=== PATIENT | male | born 1975 | race Caucasian/White ===

== ENCOUNTER 2018-05-16 19:19 | Observation (INO) ==
[2018-05-16] MEDS ORDERED: Piperacillin/Tazobactam 3.375 GM in 0.9 % Sodium Chloride Mini Bag 100 ML IVPB ONE (20:02)
--- NOTE | 2018-05-16 20:03 | Emergency Department Note ---
Disposition Referrals: Clarke Flores DO [Primary Care Provider] - Lower Extremity Injury HPI - General Chief Complaint: ED Skin/Abscess/Foreign Body Stated Complaint: lymphedema,cellulitis Source: patient Limitations: physical limitation - Related Data Home Medications Medication Instructions Recorded Confirmed Cholecalciferol (D-3) [Vitamin D] 1,000 unit PO DAILY 10/12/16 02/13/18 Furosemide [Lasix] 40 mg PO DAILY 10/12/16 02/13/18 Gabapentin [Neurontin] 300 mg PO TID 10/12/16 02/13/18 HydrOXYzine 50 mg PO QID PRN 10/12/16 02/13/18 Ibuprofen [Motrin] 800 mg PO TID 10/12/16 02/13/18 Paroxetine HCl [Paxil] 20 mg PO DAILY 10/12/16 02/13/18 Potassium Chloride [K-Tab ER] 10 meq PO DAILY 10/12/16 02/13/18 Previous Rx's Medication Instructions Recorded Albuterol Sulfate [Albuterol 2 puff IH Q6HR PRN #1 hfa.aer.ad 10/12/16 Inhaler] Clotrimazole 1% CRM [Lotrimin 1%] 1 appl TP BID #1 tube 02/22/18 Doxycycline 100 mg PO Q12H 4 Days #8 capsule 02/22/18 levoFLOXacin [Levaquin] 750 mg PO DAILY 4 Days #4 tablet 02/22/18 Allergies Allergy/AdvReac Type Severity Reaction Status Date / Time No Known Allergies Allergy Verified 02/13/18 09:56 Past Medical History - Past Medical History Medical history: Reports: diabetes, hypertension, other Psychiatric history: Reports: no psych history - Social History Smoking Status: Current every day smoker Smokeless Tobacco Status: No Alcohol use: Reports: occasionally Drug use: Reports: none Physical Exam - General Limitations: physical limitation General appearance: alert Course Vital Signs Temperature 98.3 F 05/16/18 19:20 Pulse Rate 80 05/16/18 19:20 Respiratory Rate 16 05/16/18 19:20 Blood Pressure 146/79 05/16/18 19:20 O2 Sat by Pulse Oximetry 95 05/16/18 19:20 Temperature 98.3 F 05/16/18 19:20 Pulse Rate 80 05/16/18 19:20 Respiratory Rate 16 05/16/18 19:20 Blood Pressure 146/79 05/16/18 19:20 O2 Sat by Pulse Oximetry 95 05/16/18 19:20 Oxygen Delivery Oxygen Delivery Room Air
[2018-05-16 20:31] LABS: Hematocrit 38.4 % (37.5-50.1); Hemoglobin 12.2 g/dL (12.9-16.9); Mean Corpuscular HGB Conc 31.8 g/dL (31.6-35.5); Mean Corpuscular Hemoglobin 28.5 pg (28.0-33.3); Mean Corpuscular Volume 89.7 fL (83.0-100.0); Mean Platelet Volume 11.3 fL (9.4-12.4); Platelet Count 146 K/mcL (140-400); Red Blood Count 4.28 M/mcL (4.19-5.50); Red Cell Distribution Width 15.2 % (11.5-14.5)
[2018-05-16 20:40] LABS: INR 1.1; Prothrombin Time 12.3 Seconds (9.4-12.1)
[2018-05-16 20:42] LABS: Activated Partial Thrombo Time 30.7 Seconds (26.0-36.0)
[2018-05-16 20:51] LABS: Alanine Aminotransferase 10 Units/L (7-52); Albumin 3.2 g/dL (3.5-5.7); Alkaline Phosphatase 63 Units/L (34-104); Aspartate Amino Transferase 11 Units/L (13-39); BUN/Creatinine Ratio 20 (6-26); Bilirubin,Total 0.4 mg/dL (0.3-1.0); Blood Urea Nitrogen 17 mg/dL (6-20); Calcium 8.4 mg/dL (8.6-10.3); Carbon Dioxide 27 mEq/L (23-29); Chloride 105 mEq/L (98-107); Globulin 3.3 g/dL (2.4-3.5); Glucose 138 mg/dL (70-105); Osmolality,Calculated 288 (280-300); Potassium 3.3 mEq/L (3.5-5.1); Sodium 137 mEq/L (136-145); Total Protein 6.5 g/dL (6.4-8.9); eGFR For Non-African Americans > 60 (> 60)
[2018-05-16 20:55] LABS: Dohle Bodies Present (Not Present); Large Platelets Present (Not Present); Platelet Estimate Normal (Normal); Toxic Granulation Present (Not Present); Toxic Vacuolation Present (Not Present)
[2018-05-16 20:57] LABS: Anisocytosis 1+ (Not Present)
[2018-05-16] MEDS ORDERED: hydrOXYzine pamoate 25 MG CAPSULE PO PRN (22:59)
[2018-05-16] MEDS ORDERED: Naloxone 0.4 MG/ML INJ IVP PRN (22:59)
[2018-05-16] MEDS: 0.9 % Sodium Chloride 1,000 ML IVC SCH (23:46)
[2018-05-17] MEDS ORDERED: Ibuprofen 800 MG TABLET PO PRN (03:54)
[2018-05-17 05:30] LABS: Basophils % 0.3 %; Eosinophils # 0.1 K/mcL (0.0-0.6); Eosinophils % 1.2 %; Hematocrit 35.7 % (37.5-50.1); Hemoglobin 11.5 g/dL (12.9-16.9); Immature Granulocytes % 0.6 % (0-4); Lymphocytes # 1.1 K/mcL (0.6-4.6); Lymphocytes % 16.8 %; Mean Corpuscular HGB Conc 32.2 g/dL (31.6-35.5); Mean Corpuscular Hemoglobin 28.7 pg (28.0-33.3); Mean Platelet Volume 11.9 fL (9.4-12.4); Monocytes # 0.7 K/mcL (0.0-1.3); Monocytes % 10.7 %; Neutrophils # 4.7 K/mcL (1.6-8.9); Platelet Count 128 K/mcL (140-400); Red Blood Count 4.01 M/mcL (4.19-5.50); Red Cell Distribution Width 15.2 % (11.5-14.5); Segmented Neutrophils % 70.4 %
[2018-05-17 05:33] LABS: INR 1.1
[2018-05-17 05:35] LABS: Activated Partial Thrombo Time 30.7 Seconds (26.0-36.0)
[2018-05-17 05:48] LABS: BUN/Creatinine Ratio 20 (6-26); Blood Urea Nitrogen 16 mg/dL (6-20); Calcium 8.2 mg/dL (8.6-10.3); Carbon Dioxide 25 mEq/L (23-29); Chloride 106 mEq/L (98-107); Glucose 102 mg/dL (70-105); Osmolality,Calculated 287 (280-300); Potassium 3.5 mEq/L (3.5-5.1); Sodium 138 mEq/L (136-145); eGFR For Non-African Americans > 60 (> 60)
[2018-05-17] MEDS: 0.9 % Sodium Chloride 1,000 ML IVC SCH (07:49)
[2018-05-17] MEDS: Cholecalciferol (D-3) 1,000 UNIT TABLET PO SCH (07:50)
[2018-05-17] MEDS: Furosemide 40 MG TABLET PO SCH (07:50)
[2018-05-17] MEDS: Piperacillin/Tazobactam 3.375 GM in 0.9 % Sodium Chloride Mini Bag 100 ML IVPB SCH ×2 (07:50→14:56)
[2018-05-17] MEDS: Gabapentin 300 MG CAPSULE PO SCH ×3 (07:51→21:26)
[2018-05-17] MEDS ORDERED: Cholecalciferol (D-3) 1,000 UNIT TABLET PO SCH (09:00)
[2018-05-17] MEDS ORDERED: Ibuprofen 800 MG TABLET PO SCH ×2 (09:00)
[2018-05-17] MEDS ORDERED: NON-FORMULARY MEDICATION 1 EACH EACH (Cholecalciferol (Vitamin D3) [Vitamin D3] 5,000 UNIT PO SCH (09:00)
--- NOTE | 2018-05-17 12:20 | Internal Med History&Physical ---
Date of Encounter: 05/17/18 Time of Encounter: 11:40 Assessment and Plan (1) Cellulitis Current visit: No Status: Acute He has been started on IV Zosyn through emergency room. Will add lactobacillus. Qualifiers: Site of cellulitis: extremity Site of cellulitis of extremity: lower extremity Laterality: left Qualified Code(s): L03.116 - Cellulitis of left lower limb (2) Anemia Current visit: Yes Status: Acute Order anemia testing in a.m. Qualifiers: Anemia type: unspecified type Qualified Code(s): D64.9 - Anemia, unspecified (3) Hypomagnesemia Current visit: No Status: Resolved History of hypomagnesemia but not presently on supplement. Check magnesium level. (4) T2DM (type 2 diabetes mellitus) Current visit: No Status: Chronic Hemoglobin A1c was 6.0% on 02/13/2018. 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 Downing is a 42 year old male who came to emergency room stating he had onset of fevers and chills May 14. The morning of May 16 he noticed significant redness developing in his left thigh. He came to emergency room and was diagnosed with cellulitis. WBC was normal but there was left shift on differential. He was admitted to [facility] floor for ongoing care needs. He reports approximately 6 previous episodes of cellulitis since August 2017. He had multiple episodes several years ago but reports an interval of 5-6 years without any infections until recurrence August 2017. He has seen infectious disease specialists at [facility] and [facility]. No immune deficiencies have been diagnosed. Past Med Surg Social Fam HX - Past Medical History Medical history: diabetes, hypertension, other Additional medical history: lymph edema bilat legs, recurrent cellulitits, Psychiatric history: no psych history - Past Surgical History Additional surgical history: gastric bypass sx, open bone biopsy to right leg, - Social History Smoking Status: Current every day smoker Packs per day: 1 Smokeless Tobacco Status: No Alcohol use: occasionally Drug use: none Internal Medicine - H&P: Meds Albuterol Sulfate [Albuterol Inhaler] 2 puff IH Q6HR PRN #1 hfa.aer.ad 10/12/16 [Rx] Cholecalciferol (D-3) [Vitamin D] 1,000 unit PO DAILY 10/12/16 [History] Furosemide [Lasix] 40 mg PO DAILY 10/12/16 [History] Gabapentin [Neurontin] 300 mg PO TID 10/12/16 [History] HydrOXYzine 50 mg PO QID PRN 10/12/16 [History] Ibuprofen [Motrin] 800 mg PO TID 10/12/16 [History] Paroxetine HCl [Paxil] 20 mg PO DAILY 10/12/16 [History] Potassium Chloride [K-Tab ER] 10 meq PO DAILY 10/12/16 [History] Cholecalciferol (D-3) [Vitamin D] 1,000 unit PO DAILY 05/16/18 [History] Cholecalciferol (Vitamin D3) [Vitamin D3] 5,000 unit PO DAILY 05/16/18 [History] Ibuprofen [Motrin] 800 mg PO TID 05/16/18 [History] 3 Allergy/AdvReac Type Severity Reaction Status Date / Time No Known Allergies Allergy Verified 05/16/18 20:32 All Systems PM: A 10-system review of systems was performed and is negative for pertinent findings except as documented above in the HPI. Review of systems: Gen.: His weight is stable the past few months. He had gastric bypass surgery 2013 ([id number]) and weight has decreased from 600+ pounds since surgery. Cardiovascular: He has edema but denies hypertension [place] heart failure DVT or pulmonary embolus Respiratory: He has smoked since age 22 up to one pack per day. He denies chronic lung disease and does not use home oxygen. GI: He denies disorders of his liver gallbladder or exocrine pancreas : He denies hematuria dysuria or kidney stones Neurologic: He denies large distribution strokes or seizures. Endocrine: He was diagnosed with DM 2 approximately 2002. He states it is diet- controlled. He denies thyroid disease or hyperlipidemia Hematology/oncology: He has anemia. He denies blood disorders or internal malignancies. Psychiatric: He has anxiety and depression but denies other mental health issues. [place] skeletal: He has diffuse pain. He reports right knee meniscal injury and left shoulder pain. He reports having a right femur bone biopsy in 1984 to evaluate for osteomyelitis which was negative. - Constitutional Vitals: Temp Pulse Resp BP Pulse Ox 97.5 F L 115 16 119/70 83 05/17/18 07:47 05/17/18 11:29 05/17/18 11:29 05/17/18 11:29 05/17/18 11:29 Exam: Gen.: He is a well-developed obese male lying in bed who appears in no severe distress at present time HEENT: Head is atraumatic and normal cephalic. Eyes: EOMI. There is no scleral icterus. Mouth: Mucosa is moist. Neck: Supple and nontender. There is no thyromegaly or adenopathy noted. Heart: Regular without murmurs gallops or ectopics Lungs: No wheezes or crackles are heard. Abdomen: Has a large abdomen. It is nontender to palpation. Extremities: He has erythema involving significant area of his left lower medial and anterior thigh area. There is tenderness to palpation of the area. Margins are overall well demarcated. Erythema does not extend into the calf. The right leg is unremarkable for cellulitis. He has chronic venous stasis pigmentation changes bilaterally. Dorsalis pedis and posttibial pulses are not palpable. Neurologic: Mental status: He is talkative and a good historian. Cranial nerves : Smile is symmetric. Forehead wrinkles bilaterally. Tongue protrudes midline. EOMI. Motor: There is no pronator drift. Cerebellar: Finger to nose is intact bilaterally. Skin: Warm and dry Internal Med - H&P Results - Labs CBC & Chem 7: 05/17/18 04:45 05/17/18 04:45 Labs: Short CBC 05/17/18 Range/Units 04:45 WBC 6.7 (4.3-11.1) K/mcL Hgb 11.5 L (12.9-16.9) g/dL Hct 35.7 L (37.5-50.1) % Plt Count 128 L (140-400) K/mcL Neutrophils # 4.7 (1.6-8.9) K/mcL BMP 05/17/18 04:45 Sodium 138 Potassium 3.5 Chloride 106 Carbon Dioxide 25 BUN 16 Creatinine 0.81 Glucose 102 Calcium 8.2 L
[2018-05-17] MEDS: Lactobacillus 1 EACH CAP.SPRINK PO SCH (21:26)
[2018-05-18] MEDS: Piperacillin/Tazobactam 3.375 GM in 0.9 % Sodium Chloride Mini Bag 100 ML IVPB SCH ×2 (00:22→09:22)
[2018-05-18 06:35] LABS: Basophils # 0.1 K/mcL (0.0-0.2); Eosinophils # 0.1 K/mcL (0.0-0.6); Eosinophils % 2.1 %; Hematocrit 35.3 % (37.5-50.1); Hemoglobin 11.2 g/dL (12.9-16.9); Immature Granulocytes % 0.6 % (0-4); Lymphocytes # 1.3 K/mcL (0.6-4.6); Lymphocytes % 26.6 %; Mean Corpuscular HGB Conc 31.7 g/dL (31.6-35.5); Mean Corpuscular Hemoglobin 28.4 pg (28.0-33.3); Mean Corpuscular Volume 89.4 fL (83.0-100.0); Mean Platelet Volume 11.1 fL (9.4-12.4); Monocytes # 0.4 K/mcL (0.0-1.3); Monocytes % 8.1 %; Platelet Count 136 K/mcL (140-400); Red Blood Count 3.95 M/mcL (4.19-5.50); Red Cell Distribution Width 15.1 % (11.5-14.5); Segmented Neutrophils % 61.6 %
[2018-05-18 06:55] LABS: BUN/Creatinine Ratio 21 (6-26); Blood Urea Nitrogen 16 mg/dL (6-20); Calcium 8.4 mg/dL (8.6-10.3); Carbon Dioxide 26 mEq/L (23-29); Chloride 106 mEq/L (98-107); Glucose 86 mg/dL (70-105); Osmolality,Calculated 286 (280-300); Potassium 3.6 mEq/L (3.5-5.1); Sodium 138 mEq/L (136-145); eGFR For Non-African Americans > 60 (> 60)
[2018-05-18 07:08] LABS: Thyroid Stimulating Hormone 0.809 mcIU/mL (0.340-5.600)
[2018-05-18 09:08] LABS: % Iron Saturation 11 % (20-55); Iron 29 mcg/dL (65-175); Transferrin 190 mg/dL (203-362)
[2018-05-18] MEDS: Gabapentin 300 MG CAPSULE PO SCH (09:21)
[2018-05-18] MEDS: Furosemide 40 MG TABLET PO SCH (09:21)
[2018-05-18] MEDS: Cholecalciferol (D-3) 1,000 UNIT TABLET PO SCH (09:21)
[2018-05-18] MEDS: Lactobacillus 1 EACH CAP.SPRINK PO SCH (09:21)
[2018-05-18 09:26] LABS: Ferritin 114 ng/mL (20-250)
[2018-05-18 09:32] LABS: Folate 6.3 ng/mL (3.0-16.0)
[2018-05-18 11:05] VITALS: BP 108/75
--- NOTE | 2018-05-18 11:36 | Discharge Summary ---
Orders not resulted at time of discharge: Pending orders 05/18/18 05:50 Zinc AM 0400 Date of Encounter: 05/18/18 Time of Encounter: 11:25 - Discharge Diagnosis (1) Cellulitis Priority: Primary Status: Acute Qualifiers: Site of cellulitis: extremity Site of cellulitis of extremity: lower extremity Laterality: left Qualified Code(s): L03.116 - Cellulitis of left lower limb (2) Anemia Priority: Secondary Status: Acute Qualifiers: Anemia type: unspecified type Qualified Code(s): D64.9 - Anemia, unspecified (3) Hypomagnesemia Priority: Secondary Status: Resolved (4) T2DM (type 2 diabetes mellitus) Priority: Secondary Status: Chronic Qualifiers: Diabetes mellitus longterm insulin use: without intermediate manager use Diabetes mellitus complication status: without complication Qualified Code(s): E11.9 - Type 2 diabetes mellitus without complications Hospital course: Mr. Downing is a 42 year old male who came to emergency room stating he had onset of fevers and chills May 14. The morning of May 16 he noticed significant redness developing in his left thigh. He came to emergency room and was diagnosed with cellulitis. WBC was normal but there was left shift on differential. He was admitted to [facility] floor for ongoing care needs. Initial orders were written by the emergency room physician. I saw him on May 17 and performed a history and physical. He was started on IV Zosyn in emergency room. I added lactobacillus. WBC remained normal and there was resolution of left shift on follow-up labs May 18. The erythema intensity had decreased on May 18 and he felt improved and stable for discharge home. He will continue with oral antibiotic and probiotic for 5 additional days at discharge. Anemia testing showed iron 29, transferrin saturation 11%, transferrin 190, ferritin 114, B12 460, and folate 6.3. He will be given ferrous sulfate with vitamin C at discharge. Vitamin D level returned slightly low at 23. His PCP can determine if supplement is needed. Zinc level is pending at time of discharge. He will follow with his PCP Dr. Flores within 1 week. - Time Spent with Patient Total time spent providing and/or coordinating discharge services: - Discharge Medications Prescriptions: Amoxicillin/Clavulanate [Augmentin] 875 mg PO BIDWM #10 tablet Ascorbic Acid [C-500] 500 mg PO DAILY #30 tablet Ferrous Sulfate 325 mg PO DAILY #30 tablet Lactobacillus [Culturelle] 1 each PO BID #10 cap.[email or web address] Home Medications: Albuterol Sulfate [Albuterol Inhaler] 2 puff IH Q6HR PRN #1 hfa.aer.ad 10/12/16 [Rx] Furosemide [Lasix] 40 mg PO DAILY 10/12/16 [History] Gabapentin [Neurontin] 300 mg PO TID 10/12/16 [History] HydrOXYzine 50 mg PO QID PRN 10/12/16 [History] Ibuprofen [Motrin] 800 mg PO TID 10/12/16 [History] Paroxetine HCl [Paxil] 20 mg PO DAILY 10/12/16 [History] Potassium Chloride [K-Tab ER] 10 meq PO DAILY 10/12/16 [History] Cholecalciferol (D-3) [Vitamin D] 1,000 unit PO DAILY 05/16/18 [History] Cholecalciferol (Vitamin D3) [Vitamin D3] 5,000 unit PO DAILY 05/16/18 [History] Ibuprofen [Motrin] 800 mg PO TID 05/16/18 [History] Amoxicillin/Clavulanate [Augmentin] 875 mg PO BIDWM #10 tablet 05/18/18 [Rx] Ascorbic Acid [C-500] 500 mg PO DAILY #30 tablet 05/18/18 [Rx] Ferrous Sulfate 325 mg PO DAILY #30 tablet 05/18/18 [Rx] Lactobacillus [Culturelle] 1 each PO BID #10 cap.[email or web address] 05/18/18 [Rx] Allergies/Adverse Reactions: 3 Allergy/AdvReac Type Severity Reaction Status Date / Time No Known Allergies Allergy Verified 05/16/18 20:32 Date of admission: 05/16/18 21:36 Primary care physician: Clarke Flores DO - Constitutional Vitals: Temp Pulse Resp BP Pulse Ox 97.7 F 58 19 108/75 95 05/18/18 11:04 05/18/18 11:04 05/18/18 11:04 05/18/18 11:04 05/18/18 11:04 - Patient Status Disposition: Home, Self-Care - Discharge Instructions Follow Up With: Clarke Flores DO [Primary Care Provider] - 1 week - Diet and Activity Activity: resume usual activities as tolerated Diet: advance to your usual diet
== END 2018-05-18 13:45 | disposition home or self-care (01) ==
LOC: INPPIK 19:19 → EMEROOPIK 19:19 → INPPIK 21:54
PROVIDERS: ADMIT Internal Medicine; ATTEND Internal Medicine